=== PATIENT | female | born 1950 | race Caucasian/White ===

== ENCOUNTER 2018-05-10 08:00 | Day surgery (SDC) | payer MEDICARE, OTHER ==
[~2018-05-10 08:00] MED LIST: CEFAZOLIN 2 Gram 2 GM/50 ML BAG IVPB ONE; CELECOXIB 100 MG CAPSULE PO ONE; FAMOTIDINE 20MG TABLET PO ONE; MECLIZINE 25 MG TABLET PO ONE; METOCLOPRAMIDE 10 MG TABLET PO ONE; VANCOMYCIN HCL 1,000 MG in DEXTROSE 5 % IN WATER 250 ML IVPB ONE
[2018-05-10] MEDS ORDERED: PROPOFOL 10 MG/ML VIAL IV ONE (08:01)
[2018-05-10] MEDS ORDERED: MIDAZOLAM HCL 2MG/2ML VIAL IV ONE (08:01)
[2018-05-10] MEDS ORDERED: ROPIVACAINE HCL (NAROPIN) /PF 5MG/ML 20ML VIAL IV ONE (08:01)
[2018-05-10] MEDS ORDERED: SCOPOLAMINE 1 PATCH TDSY TD ONE (08:01)
[2018-05-10] MEDS ORDERED: LIDOCAINE 1% MDV (10MG/ML) 20ML VIAL SQ ONE (08:01)
[2018-05-10] MEDS ORDERED: ONDANSETRON HCL IV 4 MG/2 ML VIAL IVP ONE ×2 (08:01→18:00)
[2018-05-10] MEDS ORDERED: DEXAMETHASONE 4 MG/ML 1ML VIAL IVP ONE (08:01)
[2018-05-10] MEDS ORDERED: 0.9 % SODIUM CHLORIDE 10 ML VIAL IVP ONE (08:01)
[2018-05-10] MEDS ORDERED: TRANEXAMIC ACID 1,000 MG/10 ML ML IV ONE ×2 (08:01)
[2018-05-10] MEDS ORDERED: BUPIVACAINE 0.5% W/EPI MPF 30 ML VIAL IVP ONE (08:01)
[2018-05-10 09:25] LABS: ABO GROUP A; ANTIBODY SCREEN NEGATIVE (NEGATIVE); RH TYPE NEGATIVE
[2018-05-10] MEDS ORDERED: DIPHENHYDRAMINE HCL 25 MG CAPSULE PO PRN (12:33)
[2018-05-10] MEDS ORDERED: MAGNESIUM HYDROXIDE 30 ML UDC PO PRN (12:33)
[2018-05-10] MEDS ORDERED: HYDROMORPHONE HCL 2 MG/ML VIAL IM PRN (12:33)
[2018-05-10] MEDS ORDERED: AL HYDROX/MAG HYDROX 30ML UD PO PRN (12:33)
[2018-05-10] MEDS ORDERED: ACETAMINOPHEN 325 MG TAB PO PRN (12:33)
[2018-05-10] MEDS ORDERED: ZOLPIDEM TARTRATE 5 MG TABLET PO PRN (12:33)
[2018-05-10] MEDS ORDERED: BISACODYL 10 MG SUPP RC PRN (12:33)
[2018-05-10] MEDS ORDERED: ONDANSETRON HCL IV 4 MG/2 ML VIAL IVP PRN (12:33)
[2018-05-10] MEDS ORDERED: HYDROCODONE/APAP 10/325 TABLET PO PRN ×2 (12:33)
[2018-05-10] MEDS ORDERED: NALOXONE 0.4 MG/1 ML VIAL IVP PRN (12:33)
[2018-05-10] MEDS ORDERED: ACETAMINOPHEN W/ CODEINE 300MG/60MG TABLET PO PRN ×2 (12:33)
[2018-05-10] MEDS ORDERED: KETOROLAC 30 MG/ML VIAL IVP PRN ×2 (12:33)
[2018-05-10] MEDS ORDERED: OXYCODONE/APAP 7.5MG/325MG TABLET PO PRN (12:35)
[2018-05-10] MEDS ORDERED: PNEUM 23-VAL ADULT IM ONE (14:32)
--- NOTE | 2018-05-10 16:58 | Rehab Evaluation ---
Patient Information - Patient Information Diagnosis: L knee DJD Ordered Treatment: PT Evaluate and Treat Status: Initial Evaluation Surgery: Yes (L TKA) Date of Surgery: 05/10/18 Past Medical/Surgical Hx: PAST MEDICAL/SURGICAL HISTORY Past Surgical History left knee scope 2016 RTKA 2013 hyst 2000 ear sx tubes in and out 2010 lumbar sx hardware 2013 PMH - Respiratory Hx Respiratory Disorders Yes Hx Bronchitis Yes PMH - Cardiovascular Hx Cardiovascular Disorders Yes Hx Congestive Heart Failure Yes: possibly in the past Hx Edema Yes: once in a while usually in the summer Hx Hypertension Yes: on meds fair control labile Hx Irregular Heartbeat Yes: on meds. pt getting set up for a haltor monitor to wear for 30 days Hx Palpitations Yes: on and off Hx Heart Murmur Yes Exercise Tolerance Poor Comment: due to knee and back pain PMH - Neuro Hx Neurological Disorders Yes Hx Dizziness Yes Hx Headaches Yes: sometimes Hx Neuropathy Yes: feet Hx Syncope Yes: near syncope 2 wks ago having cardiac w/u PMH - GI Hx Gastrointestinal Disorders Yes Hx Gastroesophageal Reflux Yes Hx Irritable Bowel Yes: controlled Hx Nausea/Vomiting Yes: occassional nausea PMH - Hx Genitourinary Disorders Yes Hx Bladder Problem Yes: frequency PMH - Endocrine Hx Endocrine Disorders No Comment: numbness in right knee and foot. PMH - Musculoskeletal Hx Musculoskeletal Disorders Yes Hx Arthritis Yes: RA and OA Hx Fibromyalgia Yes Comment: TMJ PMH - Psych Hx Psychiatric Problems Yes Hx Anxiety Yes Hx Depression Yes PMH - Hematology/Oncology Hx Hematology/Oncology Yes Disorders Hx Bruising Yes: bruises easily Premorbid Status: Detail (The patient was independent with ambulation prior to surgery.) Social History: Detail (The patient lives with spouse in a one story house with a basement and 1 step at the basement with one railing. The patient's bathroom is equipped with a walk in shower with a bench and grab bar and a standard height toilet and commode with handles. The patient has a walker with wheels and a standard walker.) Precautions: [place], Fall, Other (WBAT on the L LE) - Time With Patient Total Time Spent With Patient (Min): 30 Treatment Procedures: Detail (Initial Evaluation) Subjective Information - Subjective Information Per Patient (The patient had minimal complaints of L knee pain, level 2 at the highest.) Objective Data - Mental Status Patient Orientation: Oriented x3 - Visual Perception Appears within normal limits for therapeutic activities - ROM Not within normal limits (The patient's L knee AROM is limited s/p surgery. All other LE AROM is WNL.) - Strength/Tone Not within normal limits (The patient's L LE strength was not tested due to s/p surgery, however is functional ie: the patient is able to complete a SLR. All other LE strength is generally 4+ to 5/5.) - Bed Mobility Independent (The patient was independent with supine to and from sit transfer and scooting up in bed.) - Transfers Independent (The patient was independent with sit to stand transfer.) - Balance Balance Sitting: Good Balance Standing: Good - Gait Detail (The patient ambulated with wheeled walker a distance of 130 feet x 1 WBAT on the L LE, indpendently.) Therapy Assessment - Therapy Assessment Detail (The patient was independent with ambulation, transfers and bed mobility. Feel the patient will progress well with mobility.) Problem List - Problem List Physical Therapy Problem List: Detail (1) Decreased L knee AROM and strength as to be expected following surgery 2) Non ambulatory on stairs.) Goals - Goals Physical Therapy Goals: 1) The patient will ambulate on stairs with supervision for safety. 2) The patient will be independent with HEP of TKA exercises Prognosis - Prognosis Good Plan - Plan Physical Therapy Plan: PT for gait training on stairs and instruction in HEP 1- 2 times a day until all inpatient PT goals have been met.
[2018-05-10] MEDS ORDERED: OXYCODONE/APAP 10MG-325MG TABLET PO PRN ×2 (17:24→17:25)
--- NOTE | 2018-05-10 17:26 | Operative Note ---
DATE: 05/10/2018 PREOPERATIVE DIAGNOSIS: END-STAGE ARTHROSIS OF THE LEFT KNEE. POSTOPERATIVE DIAGNOSIS: END-STAGE ARTHROSIS OF THE LEFT KNEE. PROCEDURE: CEMENTED LEFT TOTAL KNEE ARTHROPLASTY USING KEBEDE & NEPHEW JEFFY II COMPONENTS, WITH A SIZE 3 OXINIUM FEMUR, SIZE 3 STEMMED TIBIAL BASEPLATE, A 9 MM LIPPED HIGHLY CROSSLINKED TIBIAL INSERT, AND A 32 MM ALL-PLASTIC PATELLA. STAFF SURGEON: LENNY WARE M.D. ANESTHESIA: SPINAL. PREPARATION: CHLORAPREP. INDIVIDUAL CONSIDERATIONS: NONE. PROCEDURE: The patient was taken to the Operating Room and placed supine on the operating table. She had a successful induction of a spinal anesthetic. The left lower extremity was prepped then draped in the usual fashion. The patient had a midline approach to the knee. The limb was elevated and the tourniquet was inflated to 250 mmHg. Sharp dissection carried down through the skin and subcutaneous tissue. Small veins were coagulated with a Bovie. A medial arthrotomy was performed. The patella was everted and the knee was flexed. The patient had exposed bone in the medial patellofemoral compartments. The fat pad was resected, the ACL was sacrificed, provisional anterior meniscectomies were performed, and the capsule was released from the medial proximal tibia. The initial femoral commercial airplane pilot hole was then made free hand. The intramedullary femoral cutting jig was placed. It was cut in 7.0 degrees of valgus and adjusted for rotation and secured with pins for a 10 mm resection. The initial transverse cut was then made. The skin guide was placed in the anterior and posterior commercial airplane pilot holes. It was found that a size 3 would be appropriate. The anterior and posterior cuts followed by chamfer cuts were made , osteophytes were removed, and a size 3 trial was placed and found to fit well. The tibia was brought forward and the remainder of the meniscal remnants were removed with a Bovie. The extraarticular tibial cutting jig was placed. It was cut in neutral with a 3-degree AP slope. Care was taken to adjust for rotation and flexion using the extraarticular alignment guide and bony landmarks. It was set for a 9 mm resection, keyed off the high lateral side and secured with pins. When cutting the tibia, care was taken to preserve the PCL insertion on the tibia. Osteophytes were removed and I was able to fit a size 3 baseplate trial. I adjusted for rotation and secured with pins. With a 9 mm trial and the femoral trial, there was excellent motion and stability. Ligamentous balance, rotation, and alignment were thought to be normal. The femoral commercial airplane pilot holes were impacted and the triflange tibial stamp was impacted and these trial components were removed. The patient had a marginal patella but adjusting for bone loss, I removed about 6 or 7 mm, which would restore her back to her original height of 9. I was able to fit a 32 patella and the three commercial airplane pilot holes were drilled. The knee was then thoroughly irrigated out with pulsatile Betadine and saline to remove any visual or palpable debris. The tourniquet was let down briefly to get good bleeders posteriorly and irrigated again. Bony surfaces were then dried. A size 3 stemmed tibial baseplate was cemented into place followed by impaction of a 9 mm lipped Highly Crosslinked tibial insert followed by cementing in the size 3 Oxinium femur followed by cementing in the 32 mm all-plastic patella. Implant surfaces were compressed, excess cement was removed and after the cement had set , there was excellent motion and stability. Ligamentous balance, rotation, alignment, and patellofemoral tracking were normal. No lateral release was required. Again thorough irrigation, the tourniquet was again let down and hemostasis was obtained with a Bovie. 30 mL of 0.5% Marcaine with Epinephrine were then infiltrated in the skin, subcutaneous, and periosteum. The capsule was closed with a running #2 Quill. The subcut was closed in layers with running #0 Quill. The skin was closed with beltran. The patient did receive 1 gram of Tranexamic Acid preoperatively. I mixed 1 gram of Tranexamic acid with 30 mL of saline and injected it into the knee and a sterile Bulkee compressive ROBBIN-type dressing was applied. The patient tolerated the procedure well. Needle and sponge counts were correct, estimated blood loss was minimal, and she was taken back to Recovery in good condition. There were no complications. JOB NUMBER: [id number] [facility]
[2018-05-10] MEDS: CEFAZOLIN 2 Gram 2 GM/50 ML BAG IVPB SCH (18:00)
[2018-05-10] MEDS: OXYCODONE/APAP 10MG-325MG TABLET PO PRN (18:44)
[2018-05-10] MEDS: POTASSIUM CHLORIDE/D5-0.9%NACL 20 MEQ/1,000 ML BAG IV SCH ×2 (19:45→21:35)
[2018-05-10] MEDS: PREGABALIN (LYRICA) 100MG CAPSULE PO SCH (21:46)
[2018-05-10] MEDS: PREGABALIN 50 MG CAPSULE PO SCH (21:46)
[2018-05-10] MEDS: DOCUSATE SODIUM 100 MG CAPSULE PO SCH (21:47)
[2018-05-10] MEDS ORDERED: TRAZODONE 50 MG TABLET PO SCH (22:00)
[2018-05-10] MEDS ORDERED: CYCLOBENZAPRINE 10MG TABLET PO ONE (22:00)
[2018-05-10] MEDS ORDERED: EZETIMIBE 10 MG TABLET PO SCH (22:00)
[2018-05-10] MEDS: TRAMADOL HCL 50 MG TABLET PO PRN (22:31)
[2018-05-11] MEDS: OXYCODONE/APAP 10MG-325MG TABLET PO PRN ×3 (01:07→18:31)
[2018-05-11] MEDS: CEFAZOLIN 2 Gram 2 GM/50 ML BAG IVPB SCH ×2 (01:08→09:38)
[2018-05-11] MEDS: POTASSIUM CHLORIDE/D5-0.9%NACL 20 MEQ/1,000 ML BAG IV SCH (05:33)
[2018-05-11] MEDS: TRAMADOL HCL 50 MG TABLET PO PRN ×3 (05:35→16:57)
[2018-05-11 06:41] LABS: HEMATOCRIT 32.6 % (35.0-47.0); HEMOGLOBIN 9.6 gm/dl (11.6-16.0)
[2018-05-11 06:57] LABS: BLOOD UREA NITROGEN 8 mg/dL (8-23); CREATININE 0.5 mg/dL (0.5-0.9); EST GLOMERULAR FILTRATION RATE > 60 mL/min; GLUCOSE,RANDOM 145 mg/dL (74-109)
[2018-05-11] MEDS ORDERED: FAMOTIDINE 20MG TABLET PO SCH (07:00)
[2018-05-11] MEDS: PREGABALIN (LYRICA) 100MG CAPSULE PO SCH (09:36)
[2018-05-11] MEDS: PREGABALIN 50 MG CAPSULE PO SCH (09:36)
[2018-05-11] MEDS: DOCUSATE SODIUM 100 MG CAPSULE PO SCH (09:37)
[2018-05-11] MEDS ORDERED: FERROUS SULFATE 325 MG TAB PO SCH (10:00)
[2018-05-11] MEDS ORDERED: RIVAROXABAN 10 MG TABLET PO SCH (10:00)
[2018-05-11] MEDS ORDERED: EZETIMIBE 10 MG TABLET PO SCH (10:00)
[2018-05-11] MEDS ORDERED: CHOLECALCIFEROL 1,000 UNIT TABLET PO SCH (10:00)
[2018-05-11] MEDS ORDERED: CRESTOR 40 MG PO SCH (10:00)
[2018-05-11] MEDS ORDERED: BUSPIRONE 5 MG TABLET PO SCH (10:00)
[2018-05-11] MEDS ORDERED: OXYBUTYNIN CHLORIDE 5MG TABLET PO SCH (10:00)
[2018-05-11] MEDS ORDERED: DULOXETINE HCL 30 MG CAPSULE.DR PO SCH (10:00)
--- NOTE | 2018-05-11 11:21 | Rehab Evaluation ---
Patient Information - Patient Information Diagnosis: L knee DJD Ordered Treatment: OT Evaluate and Treat Status: Initial Evaluation Surgery: Yes (L TKA) Date of Surgery: 05/10/18 Past Medical/Surgical Hx: PAST MEDICAL/SURGICAL HISTORY Past Surgical History left knee scope 2016 RTKA 2013 hyst 2000 ear sx tubes in and out 2010 lumbar sx hardware 2013 PMH - Respiratory Hx Respiratory Disorders Yes Hx Bronchitis Yes PMH - Cardiovascular Hx Cardiovascular Disorders Yes Hx Congestive Heart Failure Yes: possibly in the past Hx Edema Yes: once in a while usually in the summer Hx Hypertension Yes: on meds fair control labile Hx Irregular Heartbeat Yes: on meds. pt getting set up for a haltor monitor to wear for 30 days Hx Palpitations Yes: on and off Hx Heart Murmur Yes Exercise Tolerance Poor Comment: due to knee and back pain PMH - Neuro Hx Neurological Disorders Yes Hx Dizziness Yes Hx Headaches Yes: sometimes Hx Neuropathy Yes: feet Hx Syncope Yes: near syncope 2 wks ago having cardiac w/u PMH - GI Hx Gastrointestinal Disorders Yes Hx Gastroesophageal Reflux Yes Hx Irritable Bowel Yes: controlled Hx Nausea/Vomiting Yes: occassional nausea PMH - Hx Genitourinary Disorders Yes Hx Bladder Problem Yes: frequency PMH - Endocrine Hx Endocrine Disorders No Comment: numbness in right knee and foot. PMH - Musculoskeletal Hx Musculoskeletal Disorders Yes Hx Arthritis Yes: RA and OA Hx Fibromyalgia Yes Comment: TMJ PMH - Psych Hx Psychiatric Problems Yes Hx Anxiety Yes Hx Depression Yes PMH - Hematology/Oncology Hx Hematology/Oncology Yes Disorders Hx Bruising Yes: bruises easily Premorbid Status: Detail (The patient was independent with ambulation prior to surgery. Pt. was modified Ind. with all self-care, and received some assistance from with household mgmt and grocery shopping d/t back pain.) Social History: Detail (The patient lives with spouse in a one story house with a basement, and 2 step entry into the home. Bedroom, 2 bathrooms & laundry are on the main floor. Pt's bathroom has a tub/bench, but she plans to use the other bathroom during recovery. It has a walk in shower with a seat and grab bar ; and a standard toilet with 3-in-1 commode over it. The patient has a walker with wheels and a standard walker. She also has a stud driver, and reported has access to other AE if needed from a family member. Pt. enjoys gardening, and is often on the ground to do so.) Precautions: [place], Fall, Other (WBAT on the L LE) - Time With Patient Total Time Spent With Patient (Min): 35 Treatment Procedures: Detail (DEE goetz. Session was concluded with pt. seated in arm chair, and PT entered to work with her.) Subjective Information - Subjective Information Per Patient (Pt. stated she has multiple other medical issues such as fibromyalgia, arthritis, and bilateral bone spurs that effect her shoulders. Also has neck/spine issues that cause fleeting numbness in hands and feet.) Objective Data - Pain Pain Present: Yes (01/08 pain LLE) - Mental Status Patient Orientation: Oriented x3 - Visual Perception Appears within normal limits for therapeutic activities - ROM Not within normal limits (Lui. shd flex & abd to approx. 120 with compensatory postures. Lui. elbow, forearm sup/pro, and wrist flex WNL. Lacking approx. 30 degrees wrist ext lui. Able to make closed fists at this time, but pt. reported gets tight and is sometimes unable to close fists.) - Strength/Tone Not within normal limits (RUE feels weaker than L in general. Shd flex & abd MMT 4-/5. Biceps 4+/5, triceps 3+/5.) - Coordination Appears within normal limits for therapeutic activities - Transfers Independent (Modified Ind. sit<>stand from arm chair to walker.) - Balance Balance Sitting: Good Balance Standing: Fair - Sensation Intact (light touch intact lui. hands at this time. Pt. reports occasional numbness, especially after sleeping on shoulders/side.) - ADL's/IADL's Detail (Educ. provided in adaptive dressing strategies and use of AE (stud driver & sock aid). Pt. typically wears dresses and slip on shoes. Pt. dressed with modified Ind. to don dress and undergarments while seated. She typically dresses while standing, but educ. was provided to dress while seated to reduce fall risk. Pt. voiced concern regarding ability to don compression stockings d/ t weak desulfurizer operator strength and may not be able to assist d/t arthritis in hands also. Adaptive strategies were discussed. Educ. was provided in adaptive strategies to build up walker or cane handles to assist with desulfurizer operator strength weakness and avoid aggravating numbness. Pt. completed toileting with modified Ind. (walker and grab bar) and tolerated standing at the sink with no upper extremity support while brushing teeth. Adaptive strategies were also discussed for t/f in arm chair at home (pt was concerned d/t soft & low surface).) Therapy Assessment - Therapy Assessment Detail (In-pt. OT not recommended at this time. Pt. would benefit from in-home OT eval and tx for environmental assessment and BUE strength to maximize safety and independence with I/ADL's. Pt. has a positive support system, and will be available to assist with some tasks during recovery. Pt's main concerns at this time are donning compression stockings and arm chair t/f's.) Patient Education - Patient Education Teaching Topic: Equipment Use Response: Return Demonstration, Verbalize Understanding Teaching Method: Discussion Teaching Recipient: Patient Barriers To Learning: None Problem List - Problem List Physical Therapy Problem List: Detail (1) Decreased L knee AROM and strength as to be expected following surgery 2) Non ambulatory on stairs.) Goals - Goals Physical Therapy Goals: 1) The patient will ambulate on stairs with supervision for safety. 2) The patient will be independent with HEP of TKA exercises Prognosis - Prognosis Good Plan - Plan Physical Therapy Plan: PT for gait training on stairs and instruction in HEP 1- 2 times a day until all inpatient PT goals have been met. Occupational Therapy Plan: D/C from in pt. OT services.
--- NOTE | 2018-05-11 11:48 | Physical Therapy Tx Note ---
Physical Therapy Tx Note - Treatment Note Tolerated: Good Total Time Spent With Patient: 30 Physical Therapy Tx Note: Detail (The patient was up in a chair when PT arrived. The patient ambulated independently with wheeled walker WBAT on the L LE a distance of 100 feet x 1. The patient ambulated on 3 steps x 2 with use of one railing and folded walker with supervision for safety only. The patient' s HEP of TKA exercises was review including: ankle pumps, quad sets, gluteal sets, hamstring sets, SLR, heel slides. The patient performed exercises correctly. The patient has met all inpatient PT goals.) Physical Therapy Problem List: Detail (1) Decreased L knee AROM and strength as to be expected following surgery 2) Non ambulatory on stairs.) Physical Therapy Goals: 1) The patient will ambulate on stairs with supervision for safety. 2) The patient will be independent with HEP of TKA exercises Physical Therapy Plan: The patient has met all inpatient PT goals and is to continue with Home PT.
--- NOTE | 2018-05-11 20:12 | Discharge Summary ---
DATE OF ADMISSION: 05/10/2018 DATE OF DISCHARGE: 05/11/2018 DATE OF SURGERY: 05/10/2018 HISTORY: Lucila is a delightful 67-year-old female who presents with end-stage arthrosis of her left knee. She was admitted after left total knee arthroplasty.Her hospital course was unremarkable. Her discharge condition was good. Her discharge hemoglobin was 9.7, did not require transfusion. DISCHARGE INSTRUCTIONS: The plan was to discharge her to home in the care of her family. Home PT and Visiting Nurse has been arranged. She will be given Percocet for pain and Xarelto followed by Aspirin for DVT prophylaxis. She will follow-up in my office in four weeks. The Visiting Nurse will remove her sutures in two weeks. FINAL DIAGNOSIS/PRIMARY DIAGNOSIS: END-STAGE ARTHROSIS OF THE LEFT KNEE. SECONDARY DIAGNOSIS: OPERATIVE BLOOD LOSS ANEMIA. OPERATIONS AND PROCEDURES: CEMENTED LEFT TOTAL KNEE ARTHROPLASTY. DISCHARGE CONDITION: GOOD. JOB NUMBER: [id number] [facility]TDD
[2018-05-11] MEDS ORDERED: METOPROLOL SUCC 25 MG TAB.ER PO SCH (22:00)
== END 2018-05-11 20:00 | disposition home health service (06) ==
LOC: SUR 08:00 → MEDSURG 13:22 → SUR 05-11 20:00
PROVIDERS: ATTEND Orthopaedic Surgery
DX: M17.12 Unilateral primary osteoarthritis, left knee (principal); I10 Essential (primary) hypertension; E78.00 Pure hypercholesterolemia, unspecified; M06.9 Rheumatoid arthritis, unspecified; M79.7 Fibromyalgia
CPT/HCPCS: 27447; 01402; 85018; 85014; 80048; 86901; 86900; 86850; 90732; J1885 ×2; J2405; J3490 ×3; J3370; J0690 ×2; J2795; G8978; G8979 ×2; G8980; G8987; G8988; G8989; 97110; 97530; J3480; J7060